=== PATIENT | female | born 1970 | race Two or more races ===

== ENCOUNTER 2025-09-17 11:37 | Inpatient (IN) | payer OTHER ==
[~2025-09-17] VITALS: Ht 154.9 cm; Wt 68.0 kg
[2025-09-17] MEDS ORDERED: CLONAZEPAM1 M1 PO (11:55)
[2025-09-17] MEDS ORDERED: 0.9 % SODIUM CHLORIDE 1,000 ML IV STA (12:35)
[2025-09-17] MEDS ORDERED: ONDANSETRON HCL 2 MG/ML VIAL IV STA (12:35)
[2025-09-17] MEDS ORDERED: FAMOTIDINE/PF 20 MG/2 ML VIAL IV STA (12:35)
[2025-09-17] MEDS ORDERED: ONDANSETRON HCL 2 MG/ML VIAL ONE (12:38)
[2025-09-17] MEDS ORDERED: FAMOTIDINE/PF 20 MG/2 ML VIAL ONE (12:38)
[2025-09-17] MEDS ORDERED: MORPHINE SULFATE 2 MG/ML SYRINGE IV ONE ×2 (12:45→15:45)
[2025-09-17 13:15] LABS: BASO % 0.2 % (0.1-1.2); EOS # 0.02 (0.04-0.54); EOS % 0.2 % (0.7-7.0); LYMPH # 1.11 (1.18-3.74); LYMPH % 11.7 % (19.3-53.1); MEAN PLATELET VOLUME 8.80 fl (9.4-12.4); MONO # 0.31 (0.24-0.82); MONO % 3.3 % (4.7-12.5); NEUT # 8.01 (1.56-6.13); NEUT % 84.3 % (34.0-71.1); RED CELL DISTRIBUTION WIDTH 12.9 % (11.6-14.4)
[2025-09-17 13:34] LABS: INR 1.04
[2025-09-17 14:16] LABS: ALT/SGPT 22.0 U/L (12-78); AST/SGOT 13.0 U/L (15-37); BILIRUBIN TOTAL 0.54 mg/dL (0.3-1.2); BILIRUBIN,CONJUGATED 0.12 mg/dL (0.0-0.2); BUN CREA RATIO 19.0 (7.0-25.0); CREATININE SERUM 0.88 mg/dL (0.55-1.02); GFR 67.22; GLUCOSE FASTING 116.0 mg/dL (65-100); OSMOLALITY SERUM 284.0 MOSM/KG (275-295)
[2025-09-17 17:10] LABS: URINE APPEARANCE Clear; URINE BILIRRUBIN Negative (NEGATIVE); URINE BLOOD Large; URINE COLOR Yellow; URINE GLUCOSE Negative (NEGATIVE); URINE KETONE 15 (NEGATIVE); URINE LEUKOCYTE Moderate; URINE NITRATE Positive; URINE PROTEIN Negative (NEGATIVE); URINE UROBILINOGEN 1.0 E.U./dl
[2025-09-17 17:14] LABS: URINE EPITHELIAL CELLS 29.2 uL (0.0-38.8); URINE RBC 777.4 uL (0.0-20.8); URINE WBC 162.7 uL (0.0-23.2)
[2025-09-17 17:24] LABS: URINE BACTERIA > 9821.5 uL (0.0-1933); URINE CAST 0.29 uL (0.0-1.40)
[2025-09-17] MEDS ORDERED: KETOROLAC TROMETHAMINE 60 MG VIAL IM ONE ×2 (17:45→18:39)
[2025-09-17] MEDS ORDERED: CEFTRIAXONE SODIUM 1,000 MG VIAL IM ONE (17:45)
[2025-09-17] MEDS ORDERED: CEFTRIAXONE SODIUM 1,000 MG VIAL ONE (18:39)
[2025-09-17] MEDS ORDERED: ACETAMINOPHEN 325 MG TABLET PO PRN (18:45)
[2025-09-17] MEDS ORDERED: ONDANSETRON HCL 4 MG in 0.9 % SODIUM CHLORIDE 50 ML IV PRN (18:45)
[2025-09-17] MEDS ORDERED: 0.9 % SODIUM CHLORIDE 1,000 ML IV SCH (18:45)
[2025-09-17] MEDS ORDERED: ACETAMINOPHEN 500 MG GEL..CAP PO PRN (19:00)
[2025-09-17] MEDS ORDERED: KETOROLAC TROMETHAMINE 30 MG VIAL IU PRN (19:00)
[2025-09-17] MEDS ORDERED: MORPHINE SULFATE 2 MG/ML SYRINGE IV PRN (19:00)
[2025-09-17 20:31] VITALS: BP 99/68
[2025-09-17 21:26] LABS: COVID-19 AG NEGATIVE (NEGATIVE)
[2025-09-17 22:44] VITALS: BP 103/66
[2025-09-18 00:47] VITALS: BP 98/62; O2SAT 97
[2025-09-18 08:00] VITALS: BP 108/64; O2SAT 96
[2025-09-18] MEDS ORDERED: MORPHINE SULFATE 4 MG/ML CARTRIDGE IV PRN (08:46)
[2025-09-18] MEDS ORDERED: CEFTRIAXONE SODIUM 2,000 MG in 0.9 % SODIUM CHLORIDE 100 ML IV SCH (09:00)
[2025-09-18] MEDS ORDERED: FAMOTIDINE/PF 20 MG/2 ML VIAL IV SCH ×2 (09:00→21:00)
[2025-09-18] MEDS ORDERED: FF) Escitalopram Oxalate 5MG TABLET PO STA (17:57)
[2025-09-18 18:26] VITALS: BP 97/67; O2SAT 97
[2025-09-19 02:21] VITALS: BP 93/55; O2SAT 97
[2025-09-19 08:42] VITALS: BP 101/66; O2SAT 98
[2025-09-19] MEDS ORDERED: PATIENTS OWN MEDICATION (MEDICAMENTO EN PISO) PO SCH (09:00)
[2025-09-19] MEDS ORDERED: ESCITALOPRAM OXALATE 20 MG TABLET PO SCH (17:00)
[2025-09-19 19:11] VITALS: BP 108/72; O2SAT 100
[2025-09-20 00:47] VITALS: BP 100/63; O2SAT 98
[2025-09-20 08:54] VITALS: BP 126/73; O2SAT 99
[2025-09-20] MEDS ORDERED: CEFTRIAXONE SODIUM 2,000 MG VIAL IV ONE (14:15)
[2025-09-20] MEDS ORDERED: KETOROLAC TROMETHAMINE 30 MG VIAL IV NR (14:30)
[2025-09-20] MEDS ORDERED: TAMSULOSIN HCL 0.4 MG CAP PO SCH (17:00)
[2025-09-20] MEDS ORDERED: PHENAZOPYRIDINE HCL 100 MG TABLET PO SCH (17:00)
[2025-09-20 18:09] VITALS: BP 116/70; O2SAT 99
[2025-09-21 01:31] VITALS: BP 113/72; O2SAT 97
[2025-09-21 08:41] VITALS: BP 120/73; O2SAT 98
[2025-09-21] MEDS ORDERED: TAMS0.4C PO (10:47)
== END 2025-09-21 11:53 | disposition home or self-care (01) | DRG 445 ==
LOC: ER 11:37 → SURG 19:12 → MEDI 19:12
PROVIDERS: General Practice; Urology; ADMIT Internal Medicine; ATTEND Internal Medicine
PROC: BW40ZZZ Ultrasonography of Abdomen (ICD-10-PCS; 2025-09-17)
PROC: BW211ZZ Computerized Tomography (CT Scan) of Abdomen and Pelvis using Low Osmolar Contrast (ICD-10-PCS; 2025-09-17)
PROC: 0T764DZ Dilation of Right Ureter with Intraluminal Device, Percutaneous Endoscopic Approach (ICD-10-PCS; 2025-09-20)
PROC: 0TJ98ZZ Inspection of Ureter, Via Natural or Artificial Opening Endoscopic (ICD-10-PCS; principal; 2025-09-20 13:15)
DX: K80.20 Calculus of gallbladder without cholecystitis without obstruction (principal); N13.30 Unspecified hydronephrosis; N39.0 Urinary tract infection, site not specified; N20.0 Calculus of kidney; N13.9 Obstructive and reflux uropathy, unspecified

== ENCOUNTER 2025-09-25 10:28 | Emergency (ER) | payer OTHER ==
[~2025-09-25] VITALS: Ht 152.4 cm; Wt 68.0 kg
[~2025-09-25 10:28] MED LIST: CLONAZEPAM1 M1 PO; TAMS0.4C PO
[2025-09-25] MEDS ORDERED: LEXAPRO20 MG PO (11:21)
[2025-09-25] MEDS ORDERED: ONDANSETRON HCL 2 MG/ML VIAL IV ONE (12:00)
[2025-09-25] MEDS ORDERED: FAMOTIDINE/PF 20 MG/2 ML VIAL IV ONE (12:00)
[2025-09-25] MEDS ORDERED: KETOROLAC TROMETHAMINE 30 MG VIAL IV ONE (12:00)
[2025-09-25] MEDS ORDERED: 0.9 % SODIUM CHLORIDE 1,000 ML IV ONE (12:00)
[2025-09-25] MEDS ORDERED: KETOROLAC TROMETHAMINE 30 MG VIAL ONE (12:11)
[2025-09-25] MEDS ORDERED: ONDANSETRON HCL 2 MG/ML VIAL ONE (12:12)
[2025-09-25] MEDS ORDERED: FAMOTIDINE/PF 20 MG/2 ML VIAL ONE (12:12)
[2025-09-25 13:52] LABS: BASO % 0.4 % (0.1-1.2); EOS # 0.19 (0.04-0.54); EOS % 2.3 % (0.7-7.0); LYMPH # 1.47 (1.18-3.74); LYMPH % 17.5 % (19.3-53.1); MEAN PLATELET VOLUME 8.30 fl (9.4-12.4); MONO # 0.61 (0.24-0.82); MONO % 7.2 % (4.7-12.5); NEUT # 6.01 (1.56-6.13); NEUT % 71.3 % (34.0-71.1); RED CELL DISTRIBUTION WIDTH 13.5 % (11.6-14.4)
[2025-09-25 14:48] LABS: INR 1.1
[2025-09-25 14:50] LABS: ALT/SGPT 12.0 U/L (12-78); AST/SGOT 8.0 U/L (15-37); BILIRUBIN TOTAL 0.48 mg/dL (0.3-1.2); BUN CREA RATIO 14.0 (7.0-25.0); CREATININE SERUM 1.04 mg/dL (0.55-1.02); GFR 55.43; GLOBULINA 3.1 G/DL (2.4-3.5); GLUCOSE FASTING 90.0 mg/dL (65-100); OSMOLALITY SERUM 280.0 MOSM/KG (275-295)
[2025-09-25 17:18] LABS: URINE APPEARANCE Cloudy; URINE BILIRRUBIN Negative (NEGATIVE); URINE BLOOD Large; URINE COLOR Dark Yellow; URINE GLUCOSE Negative (NEGATIVE); URINE LEUKOCYTE Small; URINE NITRATE Negative; URINE UROBILINOGEN 1.0 E.U./dl
[2025-09-25 17:24] LABS: URINE BACTERIA 94.7 uL (0.0-1933); URINE EPITHELIAL CELLS 25.9 uL (0.0-38.8); URINE WBC 179.0 uL (0.0-23.2)
[2025-09-25 17:49] LABS: URINE CAST 0.15 uL (0.0-1.40); URINE KETONE 80 (NEGATIVE); URINE PROTEIN 100 (NEGATIVE); URINE RBC > 10558.9 uL (0.0-20.8)
[2025-09-25 17:50] LABS: URINE MUCUS SCANT
[2025-09-25 17:51] LABS: TYPE CELLS SQUAMOUS
[2025-09-25] MEDS ORDERED: NORFLEX100MG PO (18:30)
[2025-09-25] MEDS ORDERED: KETO10TA2 PO (18:30)
[2025-09-25 18:55] VITALS: BP 100/63; O2SAT 100
== END 2025-09-25 18:59 | disposition home or self-care (01) ==
LOC: ER 10:28
DX: N20.1 Calculus of ureter (principal)

== ENCOUNTER 2025-10-22 09:32 | Outpatient (CLI) | payer OTHER ==
[~2025-10-22 09:32] MED LIST changes: +KETO10TA2 PO; +LEXAPRO20 MG PO; +NORFLEX100MG PO
== END 2025-10-22 09:41 | disposition home or self-care (01) ==
LOC: RAD 09:32
DX: N20.0 Calculus of kidney (principal)